=== PATIENT | female | born 1975 | race Caucasian/White ===

== ENCOUNTER 2017-12-17 07:41 | Emergency (ER) | payer BC ==
--- NOTE | 2017-12-17 09:35 | UC ---
Respiratory Complaint HPI - HPI Summary HPI Summary: Cough, congestion, fever and myalgias for about 2-3 days. She has no chronic lung disease. - History of Current Complaint Chief Complaint: UCRespiratory Stated Complaint: FLU LIKE SYMPTOMS Time Seen by Provider: 12/17/17 08:52 Hx Obtained From: Patient Hx Last Menstrual Period: 12/03/17 Onset/Duration: Gradual Onset, Lasting Days Timing: Constant Severity Initially: Moderate Severity Currently: Moderate Pain Intensity: 3 Character: Cough: Nonproductive Aggravating Factors: Deep Breaths, Recumbent Position Alleviating Factors: Upright Position, Spontaneous Resolution Associated Signs And Symptoms: Positive: Fever, URI, Nasal Congestion - Allergies/Home Medications Allergies/Adverse Reactions: Allergies Allergy/AdvReac Type Severity Reaction Status Date / Time No Known Allergies Allergy Verified 12/17/17 08:27 Home Medications: Home Medications Aspirin/Acetaminophen/Caffeine [Excedrin Migraine Caplet] 1 each PO PRN [History] guaiFENesin ER TAB [Mucinex*] 600 mg PO BID 12/17/17 [History Confirmed 12/17/17 ] PMH/Surg Hx/FS Hx/Imm Hx Previously Healthy: Yes - Surgical History Surgical History: None - Family History Known Family History: Positive: Other - Father has cancer. - Social History Alcohol Use: None Substance Use Type: None Smoking Status (MU): Never Smoked Tobacco Review of Systems Constitutional: Fever, Chills Respiratory: Cough All Other Systems Reviewed And Are Negative: Yes Physical Exam Triage Information Reviewed: Yes Appearance: Well-Appearing, No Pain Distress, Well-Nourished Vital Signs: Initial Vital Signs Temp 97.9 F 12/17/17 08:28 Pulse 72 12/17/17 08:28 Resp 16 12/17/17 08:28 BP 101/69 12/17/17 08:28 Pulse Ox 100 12/17/17 08:28 Vital Signs Reviewed: Yes Eyes: Positive: Conjunctiva Clear ENT: Positive: Normal ENT inspection, Nasal congestion, TMs normal, Uvula midline. Negative: Tonsillar swelling, Tonsillar exudate, Sinus tenderness Neck: Positive: Supple, Nontender, No Lymphadenopathy Respiratory: Positive: Lungs clear, Normal breath sounds, No respiratory distress, No accessory muscle use. Negative: Respiratory distress, Decreased breath sounds, Accessory muscle use, Crackles, Rhonchi, Stridor Cardiovascular: Positive: No Murmur, Pulses Normal Abdomen Description: Positive: Nontender, No Organomegaly, Soft. Negative: Distended, Guarding Musculoskeletal: Positive: Strength Intact, ROM Intact, No Edema Neurological: Positive: Alert, Muscle Tone Normal. Negative: Fatigued Psychological: Positive: Age Appropriate Behavior Skin: Negative: rashes UC Diagnostic Evaluation - Laboratory O2 Sat by Pulse Oximetry: 100 Respiratory Course/Dx - Differential Dx/Diagnosis Provider Diagnoses: influenza Discharge - Discharge Plan Condition: Good Disposition: HOME Prescriptions: Oseltamivir CAP* [Tamiflu CAP*] 75 mg PO BID #10 cap Referrals: No Primary Care Phys,NOPCP [Primary Care Provider] -
== END 2017-12-17 09:57 | disposition home or self-care (01) ==
LOC: UCCORT 07:41
DX: J11.1 Influenza due to unidentified influenza virus with other respiratory manifestations (principal)
CPT/HCPCS: 87502; 99202; G0463

== ENCOUNTER 2019-10-28 18:04 | Emergency (ER) | payer BC ==
[2019-10-28 18:22] VITALS: BP 111/70
--- NOTE | 2019-10-28 18:35 | UC ---
Throat Pain/Nasal Víctor HPI - HPI Summary HPI Summary: 44yo woman with 10 day history of episodes of pain in the left upper jaw, initially lasting about 30 minutes and resolving. Dentist assessed 3 days ago, with negative exam and xrays, and advised to come for sinus check. today, she has increased pain with some response to ibuprofen. No fever, fatigue, cough, nasal discharge, ear ache. Pain is not related to chewing, no hx of TMJ. + hx of migraine and tension headaches. - History of Current Complaint Chief Complaint: UCGeneralIllness Stated Complaint: TOOTH/JAW COMP Time Seen by Provider: 10/28/19 18:25 Hx Obtained From: Patient Hx Last Menstrual Period: 12/03/17 Onset/Duration: Gradual Onset, Lasting Weeks Severity: Moderate Pain Intensity: 7 Cough: Nonproductive Associated Signs & Symptoms: Positive: Negative. Negative: Dysphagia, Wheezing , Hoarseness, Sinus Discomfort, Nasal Discharge, Fever, Rash - Allergies/Home Medications Allergies/Adverse Reactions: Allergies Allergy/AdvReac Type Severity Reaction Status Date / Time No Known Allergies Allergy Verified 10/28/19 18:22 Home Medications: Home Medications Ibuprofen 800 mg PO Q6HR PRN 10/28/19 [History Confirmed 10/28/19] Muscle Relaxer 10/28/19 [History] PMH/Surg Hx/FS Hx/Imm Hx Previously Healthy: Yes Neurological History: Migraine, Other - tension headaches - Surgical History Surgical History: None - Family History Known Family History: Positive: Other - Father has cancer. - Social History Alcohol Use: Rare Substance Use Type: None Smoking Status (MU): Never Smoked Tobacco Review of Systems All Other Systems Reviewed And Are Negative: Yes Constitutional: Positive: Negative Skin: Positive: Negative Eyes: Positive: Negative ENT: Positive: Other - facial pain Respiratory: Positive: Negative Cardiovascular: Positive: Negative Gastrointestinal: Positive: Negative Genitourinary: Positive: Negative Motor: Positive: Negative Neurovascular: Positive: Negative Musculoskeletal: Positive: Negative Neurological: Positive: Headache - has overall in frequency since beginning flexeril Is Patient Immunocompromised?: No Physical Exam Triage Information Reviewed: Yes Appearance: Well-Appearing, Well-Nourished, Pain Distress - mild to moderate Vital Signs: Initial Vital Signs Temp 98.9 F 10/28/19 18:15 Pulse 67 10/28/19 18:15 Resp 16 10/28/19 18:15 BP 111/70 10/28/19 18:15 Pulse Ox 100 10/28/19 18:15 Eye Exam: Normal ENT: Positive: Pharynx normal, TMs normal Dental Exam: Normal, Other - health appearance to gums and teeth Neck: Positive: Supple, Nontender, No Lymphadenopathy Respiratory: Positive: Lungs clear, Normal breath sounds Cardiovascular: Positive: RRR, No Murmur Abdomen Description: Positive: Nontender, No Organomegaly, Soft Musculoskeletal Exam: Normal, Other - no TMJ pain Neurological Exam: Normal Psychological Exam: Normal Skin Exam: Normal Throat Pain/Nasal Course/Dx - Course Course Of Treatment: Source of pain is uncertain, but not consistent with sinusitis. 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 Will use ibuprofen and follow up with PMD. - Differential Dx/Diagnosis Differential Diagnosis/HQI/PQRI: Sinusitis, Other - atypical facial pain Provider Diagnosis: Facial pain, atypical Discharge ED - Sign-Out/Discharge Documenting (check all that apply): Patient Departure All imaging exams completed and their final reports reviewed: No Studies - Discharge Plan Condition: Stable Disposition: HOME Patient Education Materials: Atypical Facial Pain (ED) Referrals: Maricruz Snider MD [Primary Care Provider] - Additional Instructions: Please arrange a follow up with your primary care doctor. 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 Begin use of ibuprofen 800mg three times daily for the next 4 or 5 days, stopping if it causes stomach upset. Ensure that you take it with food. Further evaluation might be needed--please follow up with Dr. Snider. - Billing Disposition and Condition Condition: STABLE Disposition: Home
== END 2019-10-28 19:00 | disposition home or self-care (01) ==
LOC: UCCORT 18:04
DX: G50.1 Atypical facial pain (principal)
CPT/HCPCS: 99211; G0463